=== PATIENT | male | born 1990 | race Caucasian/White ===

== ENCOUNTER 2016-11-23 20:18 | Emergency (ER) | payer MEDICAID ==
[2016-11-23 21:29] VITALS: BP 127/85
== END 2016-11-23 21:29 | disposition home or self-care (01) ==
LOC: ED 20:18
DX: J02.9 Acute pharyngitis, unspecified (principal); J40 Bronchitis, not specified as acute or chronic

== ENCOUNTER 2017-07-14 08:51 | Emergency (ER) | payer MEDICAID ==
[2017-07-14 10:47] VITALS: BP 122/85
== END 2017-07-14 10:47 | disposition home or self-care (01) ==
LOC: ED 08:51
DX: J02.0 Streptococcal pharyngitis (principal)

== ENCOUNTER 2017-08-06 13:14 | Emergency (ER) | payer MEDICAID ==
[~2017-08-06] VITALS: Ht 170.2 cm; Wt 74.4 kg
[2017-08-06 13:42] VITALS: BP 129/80; Ht 170.2 cm; Wt 74.4 kg
== END 2017-08-06 15:38 | disposition home or self-care (01) ==
LOC: ED 13:14
DX: J06.9 Acute upper respiratory infection, unspecified (principal)

== ENCOUNTER 2017-10-14 10:26 | Emergency (ER) | payer MEDICAID ==
[~2017-10-14] VITALS: Ht 170.2 cm; Wt 70.3 kg
[2017-10-14 11:02] VITALS: Ht 170.2 cm; Wt 70.3 kg
[2017-10-14 12:32] VITALS: BP 120/71
== END 2017-10-14 12:32 | disposition home or self-care (01) ==
LOC: ED 10:26
DX: N62 Hypertrophy of breast (principal)

== ENCOUNTER 2018-01-25 21:13 | Emergency (ER) | payer SELFPAY ==
[~2018-01-25] VITALS: Ht 170.2 cm; Wt 69.8 kg
[2018-01-25 21:17] VITALS: Ht 170.2 cm; Wt 69.8 kg
[2018-01-25 22:47] VITALS: BP 118/67
== END 2018-01-25 22:47 | disposition home or self-care (01) ==
LOC: ED 21:13
DX: H57.8 Other specified disorders of eye and adnexa (principal)

== ENCOUNTER 2018-05-06 00:15 | Emergency (ER) | payer MEDICAID ==
[~2018-05-06] VITALS: Ht 170.2 cm; Wt 71.7 kg
[2018-05-06 00:30] VITALS: BP 110/69; Ht 170.2 cm; Wt 71.7 kg
== END 2018-05-06 01:22 | disposition home or self-care (01) ==
LOC: ED 00:15
DX: S80.862A Insect bite (nonvenomous), left lower leg, initial encounter (principal); S80.861A Insect bite (nonvenomous), right lower leg, initial encounter; W57.XXXA Bitten or stung by nonvenomous insect and other nonvenomous arthropods, initial encounter; Y93.89 Activity, other specified; Y92.89 Other specified places as the place of occurrence of the external cause; Y99.8 Other external cause status

== ENCOUNTER 2018-12-31 19:27 | Emergency (ER) | payer OTHER ==
[~2018-12-31] VITALS: Ht 170.2 cm; Wt 73.5 kg
[2018-12-31 19:44] VITALS: Ht 170.2 cm; Wt 73.5 kg
[2018-12-31 21:52] VITALS: BP 121/75
== END 2018-12-31 21:52 | disposition home or self-care (01) ==
LOC: ED 19:27
DX: R07.81 Pleurodynia (principal); R03.0 Elevated blood-pressure reading, without diagnosis of hypertension
CPT/HCPCS: J1885